=== PATIENT | male | born 1975 | race Caucasian/White ===

== ENCOUNTER 2020-07-12 11:39 | Emergency (ER) | payer MEDICAID ==
[~2020-07-12] VITALS: Ht 185.4 cm; Wt 88.0 kg
--- NOTE | 2020-07-12 12:07 | NUR ---
SEIZURE PRECAUTIONS IN PLACE ON PT GURNEY. PT HAS LADY FRIEND AT BEDSIDE. PT ON CARDIAC AND VITALS MONITORS. WILL CONTINUE TO MONITOR.
[2020-07-12] MEDS ORDERED: LEVETIRACETAM 1,000 MG in SODIUM CHLORIDE 0.9% 100 ML IV ONE (12:30)
[2020-07-12] MEDS ORDERED: KETOROLAC 30 MG/1 ML IVPush ONE ×2 (12:30→13:00)
[2020-07-12] MEDS ORDERED: SODIUM CHLORIDE 0.9% 1,000ML IVBOLUS ONE (12:30)
--- NOTE | 2020-07-12 12:36 | NUR ---
PT UNSURE WHAT SEIZURE MED HE WAS TAKING BEFORE. PT STATED HE LAST GOT HIS MEDS FROM [facility] IN [facility], STATED HE LAS PICKED UP HIS PRESCRIPTION AT A [facility]. UNABLE TO REACH THE HOSPITAL, BOTH NUMBER ONLINE ARE NOT IN OPERATION. PT STATED HE LAST PICKED UP HIS MEDS AT A [facility] IN [place]. CALLED [facility] IN [place], THEY HAVE NO RECORD OF PT. WILL INFORM ERP
[2020-07-12 12:39] LABS: BASOPHILS % (AUTO) 1 % (0-1); EOSINOPHILS % (AUTO) 3 % (1-7); LYMPHOCYTES % (AUTO) 19 % (22-44); MEAN CORPUSCULAR HEMOGLOBIN 31.4 pg (27.5-34.5); MEAN CORPUSCULAR HGB CONC 33.8 g/dL (33.2-36.2); MEAN PLATELET VOLUME 8.5 fL (7.4-10.4); MONOCYTES % (AUTO) 10 % (2-9); NEUTROPHILS % (AUTO) 68 % (42-75); PLATELET COUNT 275 x10^3/uL (130-400); RED BLOOD COUNT 4.81 x10^6/uL (4.38-5.82); RED CELL DISTRIBUTION WIDTH 13.1 % (9.4-14.8)
[2020-07-12 12:43] LABS: MD NO
[2020-07-12 12:48] LABS: ALANINE AMINOTRANSFERASE 13 U/L (12-78); ALBUMIN 3.4 g/dL (3.4-5.0); ANION GAP 6 mmol/L (5-15); CALCIUM 8.4 mg/dL (8.5-10.1); CHLORIDE 111 mmol/L (98-107); CREATININE 0.77 mg/dL (0.7-1.3)
[2020-07-12 12:50] LABS: ALKALINE PHOSPHATASE 83 U/L (45-117); BILIRUBIN,TOTAL 0.4 mg/dL (0.2-1.0); TOTAL PROTEIN 6.9 g/dL (6.4-8.2)
[2020-07-12] MEDS ORDERED: KETOROLAC 30 MG/1 ML ONE (13:00)
[2020-07-12 13:30] VITALS: BP 124/85
--- NOTE | 2020-07-12 13:55 | NUR ---
PT RESTING CALMLY IN BED. NO SEIZURE ACTIVITY NOTED SINCE ARRIVAL TO ER. WILL CONTINUE TO MONITOR.
== END 2020-07-12 14:11 | disposition home or self-care (01) ==
LOC: ED 13:50
DX: R56.9 Unspecified convulsions (principal); R51.9 Headache, unspecified; M54.2 Cervicalgia; R55 Syncope and collapse; F17.200 Nicotine dependence, unspecified, uncomplicated
CPT/HCPCS: 36415; 70450; 72125; 80053; 85025; 93005; 96361; 96374; 99285; J1885; J7030

== ENCOUNTER 2020-07-13 22:20 | Emergency (ER) | payer MEDICAID ==
[~2020-07-13] VITALS: Ht 185.4 cm; Wt 88.0 kg
--- NOTE | 2020-07-13 22:40 | NUR ---
Task RN- ADDY. A&o x4, answering questions appropriately. Per [facility], pt had witnessed tonic clonic seizure with (+) head strike outside local market, swelling noted to posterior head. No lac/uncontrolled bleeding noted. Hx of seizures, c/o 8/10 [place]. Pt was seen here this week, keppra script filled. Pt states he is unable to pay for script. PERRLA, 2-3 bilaterally. 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 Denies numbness/tingling. States he has aura of double vision immediately prior to seizure, experienced this aura tonight. Pt able to ambulate from EMS to ED stretcher with 1 staff assist, slow/steady gait. Per [facility], fire was first on scene and pt remained postictal. Upon EMS arrival, pt was tremulous but a&o x4. Upon arrival to ED, pt is no longer tremulous. IV placed in L wrist on scene. Seizure pads placed on stretcher. Pt placed on continuous O2/tele monitoring. No s/sx acute respiratory stress. Call [place] within reach. Pt also states he has f/u appt set up at [facility]. Denies chest pain. Denies SOB. Denies fever/chills.
[2020-07-13] MEDS ORDERED: ACETAMINOPHEN 325 MG TABLET ONE (22:43)
--- NOTE | 2020-07-13 22:44 | NUR ---
REPORT RECEIVED FROM GOMEZ GOLDSMITH. PLAN OF CARE DISCUSSED. PATIENT TO CT
--- NOTE | 2020-07-13 22:53 | NUR ---
BS per EMS 192
[2020-07-13] MEDS ORDERED: ACETAMINOPHEN 325 MG TABLET PO ONE (23:00)
--- NOTE | 2020-07-13 23:31 | NUR ---
PATIENT RESTING ON GURNEY, REHANA PRECAUTIONS IN PLACE, ALL MONITORING IN PLACE, VSS, NADN.
[2020-07-13 23:39] LABS: BASOPHILS % (AUTO) 1 % (0-1); EOSINOPHILS % (AUTO) 3 % (1-7); LYMPHOCYTES % (AUTO) 17 % (22-44); MEAN CORPUSCULAR HEMOGLOBIN 31.4 pg (27.5-34.5); MEAN CORPUSCULAR HGB CONC 33.6 g/dL (33.2-36.2); MEAN PLATELET VOLUME 8.6 fL (7.4-10.4); MONOCYTES % (AUTO) 9 % (2-9); NEUTROPHILS % (AUTO) 71 % (42-75); PLATELET COUNT 257 x10^3/uL (130-400); RED BLOOD COUNT 4.78 x10^6/uL (4.38-5.82); RED CELL DISTRIBUTION WIDTH 13.3 % (9.4-14.8)
[2020-07-13 23:43] LABS: ANION GAP 5 mmol/L (5-15); CALCIUM 8.2 mg/dL (8.5-10.1); CHLORIDE 112 mmol/L (98-107); CREATININE 0.91 mg/dL (0.7-1.3)
[2020-07-13 23:49] LABS: MD NO
--- NOTE | 2020-07-13 23:59 | NUR ---
/FIANCE TO ROOM
--- NOTE | 2020-07-14 00:18 | NUR ---
CALL PLACED TO LAB TO GET ETA ON VALPROIC ACID LEVEL, FLASH RANGING CREWMEMBER STATES IT WILL BE ABOUT 20 MORE MINS
[2020-07-14] MEDS ORDERED: KETOROLAC 30 MG/1 ML ONE (00:23)
--- NOTE | 2020-07-14 00:29 | NUR ---
PATIENT MEDICATED PER [facility], TOLERATED WELL. ALL RESULTS BACK AT THIS TIME, PATIENT UP FOR RECHECK
[2020-07-14] MEDS ORDERED: VALPROIC ACID 250 MG CAPSULE PO ONE (00:30)
[2020-07-14] MEDS ORDERED: KETOROLAC 30 MG/1 ML IV ONE (00:30)
[2020-07-14 01:00] VITALS: BP 144/91
--- NOTE | 2020-07-14 01:16 | NUR ---
Patient given discharge instructions and they have confirmed that they understand the instructions. Patient ambulatory with steady gait.
== END 2020-07-14 01:18 | disposition home or self-care (01) ==
LOC: ED 23:45
DX: S09.90XA Unspecified injury of head, initial encounter (principal); G40.89 Other seizures; F17.210 Nicotine dependence, cigarettes, uncomplicated; R94.31 Abnormal electrocardiogram [ECG] [EKG]; Z91.14 Patient's other noncompliance with medication regimen; Z72.9 Problem related to lifestyle, unspecified; X58.XXXA Exposure to other specified factors, initial encounter; Y93.89 Activity, other specified; Y92.89 Other specified places as the place of occurrence of the external cause; Y99.8 Other external cause status
CPT/HCPCS: 36415; 70450; 80048; 80164; 85025; 93005; 96374; 99285; 99406; J1885